=== PATIENT | female | born 1985 | race Caucasian/White ===

== ENCOUNTER 2018-01-28 17:12 | Inpatient (IN) ==
--- NOTE | 2018-01-28 18:02 | ED ---
HPI General Chief complaint: Psychiatric Symptoms Stated complaint: Pysch Eval/VCSO/FHM Time Seen by Provider: 01/28/18 17:59 History of Present Illness HPI narrative: Patient comes to the emergency department under Saldana act from another ED for psychiatric evaluation. Patient admits to feeling depressed and having thoughts of harming herself but denies any plans currently. Patient reports plan to wrap a cord around her neck in 2012. Patient denies any other medical concerns at this time. There are no modifying factors. Related Data Home Medications Medication Instructions Recorded Confirmed No Known Home Medications 01/28/18 01/28/18 Allergies Allergy/AdvReac Type Severity Reaction Status Date / Time No Known Allergies Allergy Unverified 01/28/18 17:33 Review of Systems ROS: all other systems reviewed are negative [facility] Medical History Medical History Alcoholism (Acute) Anxiety (Acute) Depression (Acute) Surgical History Surgical History Previous section (Acute) Social History Social History Substance History: Active Abuse Second Hand Smoke Exposure: No Smoking Status: Current some day smoker Tobacco Type: Cigarettes How Often Do You Have a Drink Containing Alcohol: Monthly or less Substance Abuse Detail Alcohol: Substance Use Status: Active Route Used Substance Abuse: By Mouth Substance Frequency: "long periods w/o alcohol" mixed w/occasional bouts of drinking for one day Last Used: 5 shots or 4 small bottles of wine; last used yesterday Substance Abuse Comment: pt. has a history of alcoholism with up to 2 yrs. of sobriety Reason for Use: Calm Down Immunization History Tetanus Immunization: Unsure Hx Influenza Vaccine This Season: No Exam Narrative Exam Narrative: GENERAL: Well-developed, well nourished, in no acute distress, and non-ill appearing. SKIN: Focused skin assessment warm and dry. HEAD: Atraumatic. Normocephalic. EYES: Pupils equal and round. EOMI. No scleral icterus. No injection or drainage. ENT: No nasal bleeding or discharge. Mucous membranes pink and moist. NECK: Trachea midline. Supple. No nuclear rigidity. CARDIOVASCULAR: Regular rate and rhythm. No murmur appreciated. RESPIRATORY: No accessory muscle use. No respiratory distress. Clear to auscultation. Breath sounds equal bilaterally. MUSCULOSKELETAL: No obvious deformities. No clubbing. No cyanosis. No edema. Full range of motion. NEUROLOGICAL: Awake and alert. No obvious cranial nerve deficits. Motor grossly within normal limits. Normal speech. PSYCHIATRIC: Appropriate mood and affect. Course Initial Documented Vital Signs Temperature 98.0 F 01/28/18 18:00 Pulse Rate 89 01/28/18 18:00 Respiratory Rate 18 01/28/18 18:00 Blood Pressure 121/77 01/28/18 18:00 Pulse Oximetry 98 01/28/18 18:00 Last Documented Vital Signs Temperature 98.0 F 01/28/18 18:00 Pulse Rate 89 01/28/18 18:00 Respiratory Rate 18 01/28/18 18:00 Blood Pressure 121/77 01/28/18 18:00 Pulse Oximetry 98 01/28/18 18:00 Medical Decision Making MDM Narrative Medical decision making narrative: Patient was seen and examined. Labs were reviewed from other hospital. Patient medically cleared for further treatment and evaluation by psych. Final disposition per psych. Medical Screen Exam Complete: Yes Emergency Medical Condition: Yes Differential Diagnosis Differential Diagnosis: Homicidal, suicidal, depression, nonspecific mood disorder Discharge Plan Discharge Disposition Patient Disposition: 30 Still Patient Discharge Details Diagnosis: Medical clearance for psychiatric admission Physicians Team ED Provider: Sharron Coulter ED Midlevel Provider: Jairo Goodwin Primary Care Provider: UNKNOWN, Rxs /Orders / Referrals /Forms Prescriptions: No Action No Known Home Medications RF: 0 Status ED Status: Medically Cleared
[2018-01-29] MEDS ORDERED: LORazepam 1 MG Tablet PO PRN (09:42)
[2018-01-29] MEDS ORDERED: Haloperidol Inj 5 MG/ML Ampul IV.PUSH PRN ×2 (09:42→09:54)
[2018-01-29] MEDS ORDERED: Bisacodyl 10 MG Supp RECTAL PRN (09:42)
[2018-01-29] MEDS ORDERED: Aluminum/Magnesium/Simethacone Susp 30 ML UDC PO PRN (09:42)
--- NOTE | 2018-01-29 13:13 | P.HPPSY ---
Provisional Diagnosis Admission Date: January 29, 2018 09:42 [place] I.: Major depressive disorder, recurrent, severe, without psychosis, anxiety, alcohol use disorder [place] II.: Deferred [place] III.: No significant medical history Competence Certification of Person's Competence To Provide Express and Informed Consent I have personally examined Gloria Rosales, a person being served at [facility] on, January 29, 2018 1258. Express and informed consent means consent voluntarily given in writing, by a competent person, after sufficient explanation and disclosure of the subject matter involved to enable the person to make a knowing and willful decision without any element of force, fraud, deceit, duress, or other form of constraint or coercion. This person is 18 years of age or older, is not now known to be incompetent to consent to treatment with a guardian advocate, and does not have a health care surrogate or proxy currently making medical treatment decisions. I have found this person to be one of the following: [] Competent to provide express and informed consent, as defined above, for voluntary admission to this facility and is competent to provide express and informed consent for treatment. He/she has the consistent capacity to make well reasoned, willful, and knowing decisions concerning his or her medical or mental health treatment. The person fully and consistently understands the purpose of the admission for examination/placement and is fully capable of personally exercising all rights assured [place] [] Incompetent to provide express and informed consent to voluntary admission, and this is incompetent to provide express and informed consent to treatment. The person must be transferred to involuntary status and a petition for a guardian advocate filed with the Circuit Court. [] Refusing to provide express and informed consent to voluntary admission but is competent to provide express and informed consent for treatment. The person must be discharged or transferred to involuntary status. Form shall be completed within 24 hours of a person's arrival at the receiving facility and filed in the clinical record of each person: 1. Admitted on a voluntary basis 2. Permitted to provide express and informed consent to his/her own treatment 3. Allowed to transfer from involuntary to voluntary status 4. Prior to permitting a person to consent to his or her own treatment after having been previously found incompetent to consent to treatment. History of Present Illness Capacity: Has capacity History of Present Illness: The patient is a 32-year-old woman, domiciled in [place] with her , she has a 4 years old son, she is employed, with past psychiatric history of depression, anxiety, alcohol use disorder, 3 previous psychiatric hospitalization in [place], one previous suicide attempts, no history of self cutting behavior, no significant medical history, who comes to the emergency department under Saldana act from another ED for psychiatric evaluation. Patient admits to feeling depressed and having thoughts of harming herself but denies any plans currently. Patient reports plan to wrap a cord around her neck in 2012. Om arrival to ER was BAL 184. On psychiatric evaluation today the patient is calm, cooperative, quite tearful and fragile. The patient reports that yesterday she woke up not feeling well, she felt a detached from the reality, unable to eat, unable to think straight, was feeling quite weak and anxious. The patient had 2 panic attacks during the day, being when she got home drank some alcohol to alleviate her symptoms and immediately became quite depressed and started having suicidal ideation. Patient reports that she has been feeling depressed for about a year now, that she has been having difficulty coping with her mood swings, poor level of energy, difficult sleep at night, generally pessimism, and continue suicidal thoughts. The patient reports that she initially came to the ER voluntarily looking for help, but she was posteriorly Saldana acted. The patient reports that in the last year she has been having periodic panic attacks after being, which is making her sleep very difficult. She says that she has been out of treatment for about a year, since she moved to [place]. She is oriented 3. There is no loosening of associations, no sharath, no acute psychosis present. The patient reports occasional use of alcohol, denies the use of illegal drugs PPHX: past psychiatric history of depression, anxiety, alcohol use disorder, 3 previous psychiatric hospitalization in [place], one previous suicide attempts, no history of self cutting behavior PMHx: no significant medical history family Hx: No family psychiatric history Substance Hx: Patient denies the use of illegal drugs, reports occasional use of alcohol Social Hx the patient was born and raised in [place], she has been living in [place] for 1 year, she lives in [place] with her and 4-year-old son , she works, college graduate - Inpatient Certification I certify that the inpatient services were ordered in accordance with Medicare regulations governing the order. This includes certification that hospital inpatient services are reasonable and necessary and in the case of services not specified as inpatient-only under 42 CFR 419.22(n), that they are appropriately provided as inpatient services in accordance to with the 2-midnight benchmark under 43 CFR 412.3(e) I certify that inpatient psychiatric hospital services are medically necessary. Evaluation and treatment and/or diagnostic testing are expected to improve the patient's condition. The patient needs on a daily basis, active treatment furnished directly by or requiring the supervision of inpatient psychiatric facility personnel. Estimated Total Length of Stay (Days): 7 Plans for Post Hospital Care: Home Review of Systems Eyes: Denies blind spots, Denies blurry vision, Denies bulging eyes, Denies change in vision, Denies double vision, Denies discharge, Denies dry eyes, Denies floaters, Denies irritation, Denies itchy eyes, Denies loss of vision, Denies pain, Denies requires corrective lenses, Denies sensitivity to light, Denies other Ears, Nose, Mouth, and Throat: Denies abnormal hearing, Denies bleeding gums, Denies bad breath, Denies change in voice, Denies dental pain, Denies difficulty swallowing, Denies dizziness, Denies dry mouth, Denies ear discharge , Denies ear pain, Denies facial pain, Denies headache(s), Denies hearing loss, Denies hoarseness, Denies lip swelling, Denies nosebleed, Denies mouth lesions, Denies mouth pain, Denies nasal congestion, Denies nasal discharge, Denies nasal obstruction, Denies nasal trauma, Denies neck lump, Denies neck pain, Denies nose pain, Denies pain with swallowing, Denies poor balance, Denies post nasal drip, Denies ringing in the ears, Denies sinus pain, Denies sinus pressure , Denies sore throat, Denies throat swelling, Denies tongue swelling, Denies other Cardiovascular: Denies chest pain, Denies chest pain at rest, Denies chest pain with activity, Denies excessive sweating, Denies fainting, Denies fast heart rate, Denies foot swelling, Denies generalized swelling, Denies irregular heart rhythm, Denies leg pain with activity, Denies leg sores, Denies leg swelling, Denies lightheadedness, Denies radiating jaw, neck or arm pain, Denies rapid, pounding, or irregular heartbeat, Denies shortness of breath, Denies shortness of breath with activity, Denies shortness of breath when lying down, Denies shortness of breath causing sudden awakening, Denies slow heart rate, Denies other Gastrointestinal: Denies abdominal pain, Denies belching, Denies black, tarry stools, Denies bloating, Denies bright, red blood in stools, Denies change in bowel habits, Denies constant urge to pass stool, Denies change in stools, Denies coffee ground vomit, Denies constipation, Denies cramping, Denies difficulty swallowing, Denies excessive passing of gas, Denies feeling full early, Denies heartburn, Denies incontinent of stools, Denies loose stools, Denies nausea, Denies pain with swallowing, Denies vomiting, Denies vomiting blood, Denies other Genitourinary: Denies abnormal periods, Denies abnormal vaginal bleeding, Denies absent period, Denies bleeding between periods, Denies blood in urine, Denies difficulty starting urination, Denies difficulty urinating, Denies dribbling after urination, Denies frequent nighttime urination, Denies genital itching, Denies genital lesions, Denies heavy periods, Denies hot flashes, Denies light periods, Denies nipple discharge, Denies painful intercourse, Denies painful periods, Denies painful urination, Denies pelvic pain, Denies prolapse symptoms, Denies sexual problems, Denies side pain, Denies urinary incontinence, Denies urinary urgency, Denies vaginal discharge, Denies vaginal dryness, Denies vaginal odor, Denies vaginal itching, Denies other Musculoskeletal: Denies abnormal walking, Denies back pain, Denies body aches, Denies decreased muscle mass, Denies deformity, Denies joint pain, Denies joint swelling, Denies limited joint movement, Denies loss of height, Denies muscle cramps, Denies muscle weakness, Denies neck pain, Denies numbness, Denies radiating pain into limb, Denies stiffness, Denies tingling, Denies other Neurologic: Reports abnormal walking Psychiatric: Reports behavioral changes, Reports change in appetite, Reports depression, Reports thoughts of hurting/killing yourself [facility] - History History Provided By: Patient - Medical History Medical History: Medical History (Last Updated 01/28/18 @ 18:01 by Estephanie Goodwin RN) Alcoholism Anxiety Depression - Surgical History Surgical History: Surgical History (Last Updated 01/28/18 @ 17:40 by Estephanie Goodwin RN) Previous section - Tobacco History Second Hand Smoke Exposure: No Tobacco Use In Past 30 Days: Yes Smoking Status: Current some day smoker Tobacco Type: Cigarettes - Alcohol History How Often Do You Have a Drink Containing Alcohol: Monthly or less - Substance Use History Substance History: Active Abuse - Substance Use Type Alcohol Status: Active Route Used: By Mouth Frequency: "long periods w/o alcohol" mixed w/occasional bouts of drinking for one day Last Used: 5 shots or 4 small bottles of wine; last used yesterday Reason for Use: Calm Down Comment: pt. has a history of alcoholism with up to 2 yrs. of sobriety - Immunization History Tetanus Immunization: Unsure Hx Influenza Vaccine This Season: No Medications and Allergies Active Medications: Active Medications Al Hydrox/Mg Hydrox/Simethicone (Mag-Al Plus Susp Liq) 30 ml PO Q6H PRN PRN Reason: DYSPEPSIA Al Hydroxide/Mg Hydroxide (Milk Of Magnesia Liq) 30 ml PO Q12H PRN PRN Reason: Mild Constipation Bisacodyl (Dulcolax Supp) 10 mg RECTAL DAILY PRN PRN Reason: SEVERE CONSITIPATION Citalopram Hydrobromide (Celexa) 10 mg PO DAILY JENNIFER Clonazepam (Klonopin) 0.5 mg PO Q12HR JENNIFER Diphenhydramine HCl (Benadryl) 50 mg PO Q6H PRN PRN Reason: For mild anxiety and/or EPS Flumazenil (Romazecon Inj) 0.2 mg IV.PUSH Q1M PRN PRN Reason: OVERSEDATION Haloperidol Lactate (Haldol Inj) 1 mg IV.PUSH Q15M PRN PRN Reason: for severe agitation Lactulose (Lactulose Liq) 30 ml PO DAILY PRN PRN Reason: SEVERE CONSITIPATION Lorazepam (Ativan) 1 mg PO Q4H PRN PRN Reason: for CIWA 8-10 Lorazepam (Ativan Inj) 2 mg IV.PUSH Q2H PRN PRN Reason: for CIWA 11-14 Lorazepam (Ativan Inj) 2 mg IV.PUSH Q1H PRN PRN Reason: for CIWA 15-20 Lorazepam (Ativan Inj) 2 mg IV.PUSH Q15M PRN PRN Reason: for CIWA > 20 Lorazepam (Ativan Inj) 1 mg IV.PUSH Q4H PRN PRN Reason: for CIWA 8-10 Lorazepam (Ativan) 2 mg PO Q2H PRN PRN Reason: for CIWA 11-14 Senna/Docusate Sodium (Mattie-Colace) 1 tab PO BID JENNIFER Sennosides (Senokot) 17.2 mg PO Q12H PRN PRN Reason: Moderate Constipation Allergies Allergy/AdvReac Type Severity Reaction Status Date / Time No Known Allergies Allergy Unverified 01/28/18 17:33 Home Medications Medication Instructions Recorded Confirmed Type No Known Home Medications 01/28/18 01/28/18 History Exam Vital signs: Vital Signs 01/28/18 18:00 01/29/18 05:15 Temperature 98.0 F 98.9 F Pulse Rate 89 78 Respiratory Rate 18 18 Blood Pressure 121/77 153/93 H Pulse Oximetry 98 99 Intake & Output 01/28/18 01/29/18 01/29/18 18:59 06:59 18:59 Weight 61.235 kg Narrative: No tremors, no EPS, no stiffness, no psychomotor agitation retardation, no withdrawal at the moment - Constitutional no acute distress - Routine HEENT Exam Head: Present: normocephalic ENT: Present: mucous membranes moist Mental Status Examination Appearance: Appropriate Consciousness: Alert Orientation: x4 Motor Activity: Normal gait Speech: Unremarkable Language: Adequate Fund of Knowledge: Adequate Attention and Concentration: Adequate Mood: Sad Affect: Sad Thought Process & Associations: Intact Thought Content: Appropriate Hallucination Type: None Delusion Type: None Suicidal Ideation: Yes Suicidal Plan: No Suicidal Intention: No Homicidal Ideation: No Homicidal Plan: No Homicidal Intention: No Insight: Poor Judgment: Poor Assessment and Plan - Assessment (1) Major depress dis, severe Code(s): F32.2 - Major depressive disorder, single episode, severe without psychotic features Status: Acute (2) Major depressive disorder Code(s): F32.9 - Major depressive disorder, single episode, unspecified Status : Acute - Plan Plan: Estimated LOS: [] days On psychiatric evaluation today the patient presents quite tearful, vulnerable, but calm and cooperative. The patient reports that at least the last month she has been feeling depressed and anxious, which yesterday exacerbated to the point that she had 2 or 3 panic attacks, felt quite hopeless, helpless, worthless was having serious suicidal thoughts. The patient reports that she cannot identify many stressors in her life, but she has been feeling quite guilty and responsible about the way she is managing and conducted herself at work. There is a patient with a psychiatric history of depression, alcohol use disorder, 2 previous psychiatric hospitalizations, suicide attempts, she is not in treatment at the moment. The patient has an elevated risk of danger to self at the moment, she will be admitted in psychiatry for stabilization and safety. I will start Celexa 10 mg for the depression and anxiety, clonazepam 0.5 mg twice daily for her right to depression and panic attacks. [facility] protocol. Collateral information still available. Transferred to 2600 the unit. Brief supportive psychotherapy provided Justification for Continued Inpatient Stay: Patient will be admitted in psychiatry (2) Major depressive disorder Qualifiers: Major depression recurrence: recurrent Active/Remission status: currently active Major depression episode severity: severe Psychotic features: without psychotic features Qualified Code(s): F33.2 - Major depressive disorder, recurrent severe without psychotic features
[2018-01-29] MEDS: clonazePAM 0.5 MG Tablet PO SCH ×2 (13:38→21:45)
[2018-01-29] MEDS: Senna/Docusate Sodium 8.6/50 MG Tablet PO SCH (21:45)
[2018-01-30] MEDS: Citalopram 20 MG Tablet PO SCH ×2 (01:18→09:47)
[2018-01-30] MEDS: Senna/Docusate Sodium 8.6/50 MG Tablet PO SCH (09:46)
[2018-01-30] MEDS: clonazePAM 0.5 MG Tablet PO SCH (09:47)
[2018-01-30 12:05] LABS: Calcium 8.9 mg/dL (8.5-10.1); Carbon Dioxide 27.5 meq/L (21.0-32.0)
[2018-01-30 12:09] LABS: Chol/HDL Ratio 1.9 Ratio; HDL Cholesterol 83.3 mg/dL (40.0-60.0)
--- NOTE | 2018-01-30 14:59 | P.DSPSY ---
Psychiatry Discharge Summary Inpatient Psychiatric care?: Yes Advance Directives: No Mental Health Advance Directive: No Health Care Proxy: No - Admission Admission Date: January 29, 2018 09:42 - Admission Diagnosis (1) Acute adjustment disorder with mixed disturbance of emotions and conduct Code(s): F43.25 - Adjustment disorder with mixed disturbance of emotions and conduct (2) Alcohol abuse with intoxication Code(s): F10.129 - Alcohol abuse with intoxication, unspecified Brief History: The patient is a 32-year-old woman, domiciled in [place] with her , she has a 4 years old son, she is employed, with past psychiatric history of depression, anxiety, alcohol use disorder, 3 previous psychiatric hospitalization in [place], one previous suicide attempts, no history of self cutting behavior, no significant medical history, who comes to the emergency department under [facility] act from another ED for psychiatric evaluation. Patient admits to feeling depressed and having thoughts of harming herself but denies any plans currently. Patient reports plan to wrap a cord around her neck in 2012. Om arrival to ER was BAL 184. On psychiatric evaluation today the patient is calm, cooperative, quite tearful and fragile. The patient reports that yesterday she woke up not feeling well, she felt a detached from the reality, unable to eat, unable to think straight, was feeling quite weak and anxious. The patient had 2 panic attacks during the day, being when she got home drank some alcohol to alleviate her symptoms and immediately became quite depressed and started having suicidal ideation. Patient reports that she has been feeling depressed for about a year now, that she has been having difficulty coping with her mood swings, poor level of energy, difficult sleep at night, generally pessimism, and continue suicidal thoughts. The patient reports that she initially came to the ER voluntarily looking for help, but she was posteriorly [facility] acted. The patient reports that in the last year she has been having periodic panic attacks after being, which is making her sleep very difficult. She says that she has been out of treatment for about a year, since she moved to [place]. She is oriented 3. There is no loosening of associations, no sharath, no acute psychosis present. The patient reports occasional use of alcohol, denies the use of illegal drugs PPHX: past psychiatric history of depression, anxiety, alcohol use disorder, 3 previous psychiatric hospitalization in [place], one previous suicide attempts, no history of self cutting behavior PMHx: no significant medical history family Hx: No family psychiatric history Substance Hx: Patient denies the use of illegal drugs, reports occasional use of alcohol Social Hx the patient was born and raised in [place], she has been living in [place] for 1 year, she lives in [place] with her and 4-year-old son , she works, college graduate Tobacco Use In Past 30 Days: No How Often Do You Have a Drink Containing Alcohol: 2 to 3 times a week Hospital Course: Patient is seen today with nurse. Chart reviewed. Patient denies suicidality homicidality voice or visions. States she is moved here [place] ago [place] with her and 4-year-old child. 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 Feels somewhat overworked. This is because of some depression and anxiety. However it appears patient also has a significant alcohol related problem. States she has been through detox and rehab around [place]. She states she drinks 3-4 times a week. She drinks wine. She states her works evenings in the evenings when he is she feels she has the right to drink more alcohol. She denies a.m. drinking. She states she does drink by herself. She has had blackout and passed out spells. She does have a history of detox and rehab. She denies any legal issues related to this. She acknowledges past polysubstance experimentation. Including marijuana cocaine and amphetamines and benzodiazepines. She states opiates makes her sick. There is history of substance abuse with her family of origin. Patient states of brief psychiatric hospitalization number of years ago but no medication provided. She does not see a psychiatrist at this time has not prescribed any medications at this time. It appears she tries to justify the use of alcohol as he treats her panic attacks. There is some subtle drug seeking noted in her comments. About need for something to control her panic attacks which is why she uses alcohol. However at the stomach feel patient reached maximum benefit of this hospitalization. We will will not be prescribing this patient any benzodiazepines or opiates. I did explain this to her and explained the need for her to follow up with psychiatric services counseling services, and the work with numbers more appropriate medications. Patient states her wants to go home today that the baby will be staying with his grandparents tonight that he will monitor and maintain her sobriety. At this time I feel she has reached maximum benefit of this hospitalization. Thus she will be discharged today to herself with Rx of Celexa 10 mg daily and follow up with [facility] for medication management and counseling or through her insurance program. We do have counselors work with her with that. Also recommend outpatient involuntary substance abuse assessment through [facility], also referred to our [facility] outpatient support group - Discharge Discharge Date: 01/30/18 - Discharge Diagnosis (1) Acute adjustment disorder with mixed disturbance of emotions and conduct Diagnosis: Principal Code(s): F43.25 - Adjustment disorder with mixed disturbance of emotions and conduct Status: Acute (2) Alcohol abuse with intoxication Diagnosis: Secondary Code(s): F10.129 - Alcohol abuse with intoxication, unspecified Status: Acute Discharge Disposition: Home - Discharge Instructions Discharge Diet: Regular Diet Activities You Can Perform: Regular- No Restrictions - Discharge Time > 30 minutes Mental Status Examination Appearance: Appropriate Consciousness: Alert Orientation: x4 Motor Activity: Normal gait Speech: Unremarkable Language: Adequate Fund of Knowledge: Adequate Attention and Concentration: Adequate Mood: Sad Affect: Sad Thought Process & Associations: Intact Thought Content: Appropriate Hallucination Type: None Delusion Type: None Suicidal Ideation: Yes Suicidal Plan: No Suicidal Intention: No Homicidal Ideation: No Homicidal Plan: No Homicidal Intention: No Insight: Poor Judgment: Poor Discharge/Advance Care Plan - Results Vital Signs: Last Vital Signs Temp 98.1 F 01/30/18 05:23 Pulse 83 01/30/18 05:23 Resp 17 01/30/18 05:23 BP 113/73 01/30/18 05:23 Pulse Ox 99 01/30/18 05:23 Lab Results: Abnormal Lab Results 01/30/18 10:34 Sodium 141 Potassium 4.0 Chloride 106 Carbon Dioxide 27.5 Anion Gap 8 BUN 15 Creatinine 0.76 Estimated GFR 89 Random Glucose 91 Calcium 8.9 Triglycerides 106 Cholesterol 159 LDL Cholesterol, Calc 55 HDL Cholesterol 83.3 H Cholesterol/HDL Ratio 1.90 Laboratory Results Triglycerides 106 mg/dL (42-150) 01/30/18 10:34 Cholesterol 159 mg/dL (120-200) 01/30/18 10:34 LDL Cholesterol, Calc 55 mg/dL (0-99) 01/30/18 10:34 HDL Cholesterol 83.3 mg/dL (40.0-60.0) H 01/30/18 10:34 Summary of Procedures: None done Pending Results: None - Medications Number of antipsychotic medications at discharge: 0 - Discharge Care Plan Goals to Promote Your Health: * To prevent worsening of your condition and complications * To maintain your health at the optimal level Directions to Meet Your Goals: Take your medications as prescribed Follow your dietary instruction Follow activity as directed Keep your appointments as scheduled Take your immunizations and boosters as scheduled If your symptoms worsen call your PCP, if no PCP go to Urgent Care Center or Emergency Room For 31/12 questions related to your inpatient stay or results of tests pending at discharge, please contact Dr. Ervin Kam MD at Smoking is Dangerous to Your Health. Avoid second hand smoking
[2018-01-30 17:08] LABS: Hemoglobin A1c 4.9 % (4.3-6.0)
== END 2018-01-30 17:15 | disposition home or self-care (01) ==
LOC: NEPJ 17:12 → NEDA 01-29 09:42 → H260 01-29 12:00
PROVIDERS: ADMIT Psychiatry & Neurology Psychiatry; ATTEND Psychiatry & Neurology Psychiatry